=== PATIENT | male | born 1990 | race African-American/Black ===

== ENCOUNTER 2018-10-04 08:14 | Emergency (ER) | payer OTHER ==
[2018-10-04 09:37] LABS: BASOPHIL % 0.5 % (0.0-0.4); Basophil (Absolute #) 0.02 (0-0.4); Eosinophil % 3.7 % (0.00-5.0); Eosinophil (Absolute #) 0.15 (0-0.5); Granulocyte Absolute (ANC) 1.52 (1.4-6.9); Granulocytes % 37.1 % (36.0-66.0); Hematocrit 38.1 % (42-50); Hemoglobin 12.4 gm/dl (12.5-18.0); Lymphocyte (Absolute #) 1.98 (1.0-4.6); Lymphocytes % 48.4 % (24.0-44.0); Mean Cell Volume 89.2 fl (78-100); Mean Corpuscular Hgb Concent. 32.5 g/dl (32-36); Mean Platelet Volume 10.6 fl (6-9.5); Monocyte (Absolute #) 0.42 (0.0-1.3); Monocytes % 10.3 % (0.0-12.0); Platelet Count 161 K/mm3 (150-450); Red Blood Count 4.27 M/mm3 (4.1-5.6); Red Cell Distribution Width 13.6 % (11.5-14.0); White Blood Count 4.1 K/mm3 (4.0-10.5)
[2018-10-04 09:46] LABS: BLOOD UREA NITROGEN 17 mg/dL (9-20); CHLORIDE 109 mmol/L (98-107); Calcium 9.3 mg/dL (8.4-10.2); Carbon Dioxide 27 mmol/L (22-30); Creatinine 1 1.09 mg/dL (0.66-1.25); Glucose 76 mg/dL (74-106); Potassium 3.7 mmol/L (3.5-5.1); SODIUM 141 mmol/L (137-145)
[2018-10-04 09:49] LABS: ACETAMINOPHEN < 10 ug/ml (10-30); SALICYLATE < 1.0 mg/dL (2-20)
[2018-10-04 09:50] LABS: ETHYL ALCOHOL < 10 mg/dL (0-10)
[2018-10-04 09:51] LABS: Appearance CLEAR (CLEAR); Bilirubin NEGATIVE (NEGATIVE); Blood NEGATIVE Ery/ul (0-5); Glucose NEGATIVE (NEGATIVE); Ketones NEGATIVE (NEGATIVE); Leukocyte Esterase NEGATIVE (NEGATIVE); Mucus SLIGHT /HPF (NEGATIVE); Nitrite NEGATIVE (NEGATIVE); Protein,Urine Dip NEGATIVE (Negative); Specific Gravity 1.024 (1.005-1.025); Urobilinogen NEGATIVE mg/dL (0-1)
[2018-10-04 09:52] LABS: Bacteria FEW /HPF (NEGATIVE); Epithelial Cells FEW /HPF (FEW)
[2018-10-04 09:56] LABS: Amphetamine,Urine POSITIVE (NEGATIVE); Barbiturate,Urine NEGATIVE (NEGATIVE); Benzodiazepine,Urine NEGATIVE (NEGATIVE); Cocaine,Urine NEGATIVE (NEGATIVE); Methadone,Urine NEGATIVE (NEGATIVE); Opiate,Urine NEGATIVE (NEGATIVE); PCP,Urine POSITIVE (NEGATIVE); THC,Urine POSITIVE (NEGATIVE)
[2018-10-04 13:41] VITALS: PULSE 58
--- NOTE | 2018-10-04 13:41 | ERPHSYRPT ---
- History of Present Illness Source: patient Exam Limitations: no limitations Patient Subjective Stated Complaint: STATES HAS HX OF DEPRESSION AND RECENTLY HAS FELT WORSE. STATES HE QUIT HIS JOB YESTERDAY BECAUSE OF THE DEPRESSION AND STATES HE WAS DEALING WITH A LOT OF RACISM AT WORK. STATES HE THINKS DAILY OF KILLING HIMSELF BUT HAS NO SPECIFIC PLAN. Triage Nursing Assessment: AMBULATED TO ROOM PER SELF. SKIN W/D, COLOR NORMAL, RESP EASY. SOMEWHAT FLAT AFFECT, MONOTONE VOICE. DENIES ANY PAIN AT THIS TIME. Physician History: Pt is a 28 y/o male that presented to the ED with suicidal ideation. Pt has a h /o of psychiatric problems and depression. He could not afford his meds, and did not take it for a while. He lost his job yesterday and was very depressed. Pt decided to leave the area, and saw the hospital, and decided to come in and get some help. Pt denies F/C/S. No SOB or cough. No chest pain or palpitations. Pt states, has some auditory and visual hallucinations. Had SI in the past, but never acted on it. Timing/Duration: yesterday Severity of Symptoms-Max: moderate Severity of Symptoms-Current: moderate Previous symptoms: same symptoms as today Allergies/Adverse Reactions: No Known Drug Allergies Allergy (Unverified 10/04/18 08:41) Home Medications: No Reportable Medications [No Reported Medications] 10/04/18 [History] Hx Tetanus, Diphtheria Vaccination/Date Given: No Hx Influenza Vaccination/Date Given: No Hx Pneumococcal Vaccination/Date Given: No - Past Medical History Pertinent Past Medical History: Yes Psycho-Social History: Depression - Past Surgical History Past Surgical History: No - Social History Smoking Status: Current every day smoker How long have you smoked: 15 Exposure to second hand smoke: No Drug Use: marijuana Patient Lives Alone: Yes - Review of Systems Constitutional: No Fever, No Chills Eyes: No Symptoms Ears, Nose, & Throat: No Symptoms Respiratory: No Cough, No Dyspnea Cardiac: No Chest Pain, No Edema, No Syncope Abdominal/Gastrointestinal: No Abdominal Pain, No Nausea, No Vomiting, No Diarrhea Musculoskeletal: No Back Pain, No Neck Pain Neurological: No Dizziness, No Focal Weakness, No Sensory Changes Psychological: Drug Abuse, Suicidal Ideations, Hallucinations, Mood Changes - Nursing Vital Signs Nursing Vital Signs: Initial Vital Signs Temperature 98.1 F 10/04/18 08:26 Pulse Rate 75 10/04/18 08:26 Respiratory Rate 16 10/04/18 08:26 Blood Pressure 120/69 10/04/18 08:26 O2 Sat by Pulse Oximetry 98 10/04/18 08:26 Pain Scale Pain Intensity 0 - Physical Exam General Appearance: no apparent distress Eyes, Ears, Nose, Throat Exam: normal ENT inspection, moist mucous membranes Neck Exam: normal inspection, non-tender, supple Respiratory Exam: normal breath sounds, lungs clear, No respiratory distress Cardiovascular Exam: regular rate/rhythm, No edema Gastrointestinal/Abdominal Exam: soft, No tenderness, No distention Extremities Exam: normal inspection, normal range of motion, No evidence of injury, No edema Neurological Exam: alert, 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, oriented x 3 Behavior/Eye Contact/Speech: cooperative, avoids eye contact, compulsive Thoughts/Hallucinations: auditory hallucinations, flight of ideas SpO2 Interpretation: normal SpO2: 97 O2 Delivery: Room Air - Course Nursing assessment & vital signs reviewed: Yes Ordered Tests: Active Orders 24 hr Category Date Time Status ACETAMINOPHEN Stat Lab 10/04/18 09:15 Completed BMP Stat Lab 10/04/18 09:15 Completed CBC W DIFF Stat Lab 10/04/18 09:15 Completed ETHYL ALCOHOL Stat Lab 10/04/18 09:15 Completed SALICYLATE Stat Lab 10/04/18 09:15 Completed UA W/RFX UR CULTURE Stat Lab 10/04/18 09:15 Completed Urine Triage Profile Stat Lab 10/04/18 09:15 Completed Lab/Rad Data: Laboratory Result Diagrams 10/04/18 09:15 10/04/18 09:15 Laboratory Results 10/04/18 10/04/18 10/04/18 Range/Units 09:15 09:15 09:15 WBC (4.0-10.5) K/mm3 RBC (4.1-5.6) M/mm3 Hgb (12.5-18.0) gm/dl Hct (42-50) % MCV (78-100) fl MCH (26-32) pg MCHC (32-36) g/dl RDW (11.5-14.0) % Plt Count (150-450) K/mm3 MPV (6-9.5) fl Gran % (36.0-66.0) % Eos # (Auto) (0-0.5) Absolute Lymphs (auto) (1.0-4.6) Absolute Monos (auto) (0.0-1.3) Lymphocytes % (24.0-44.0) % Monocytes % (0.0-12.0) % Eosinophils % (0.00-5.0) % Basophils % (0.0-0.4) % Absolute Granulocytes (1.4-6.9) Basophils # (0-0.4) Sodium 141 (137-145) mmol/L Potassium 3.7 (3.5-5.1) mmol/L Chloride 109 H (98-107) mmol/L Carbon Dioxide 27 (22-30) mmol/L Anion Gap 8.0 (5-15) MEQ/L BUN 17 (9-20) mg/dL Creatinine 1.09 (0.66-1.25) mg/dL Estimated GFR > 60.0 ML/MIN Glucose 76 (74-106) mg/dL Calcium 9.3 (8.4-10.2) mg/dL Urine Color YELLOW (YELLOW) Urine Appearance CLEAR (CLEAR) Urine pH 5.0 (5-6) Ur Specific [place] 1.024 (1.005-1.025) Urine Protein NEGATIVE (Negative) Urine Ketones NEGATIVE (NEGATIVE) Urine Blood NEGATIVE (0-5) Jose/ul Urine Nitrite NEGATIVE (NEGATIVE) Urine Bilirubin NEGATIVE (NEGATIVE) Urine Urobilinogen NEGATIVE (0-1) mg/dL Ur Leukocyte Esterase NEGATIVE (NEGATIVE) Urine WBC (Auto) NONE (0-5) /HPF Urine RBC (Auto) NONE (0-2) /HPF U Epithel Cells (Auto) FEW (FEW) /HPF Urine Bacteria (Auto) FEW (NEGATIVE) /HPF Other Casts (Auto) NEGATIVE (NEGATIVE) /LPF Urine Mucus (Auto) SLIGHT (NEGATIVE) /HPF Urine Culture Reflexed NO (NO) Urine Glucose NEGATIVE (NEGATIVE) mg/dL Salicylates < 1.0 L (2-20) mg/dL Urine Opiates Level NEGATIVE (NEGATIVE) Ur Methadone NEGATIVE (NEGATIVE) Acetaminophen < 10 L (10-30) ug/ml Urine Barbiturates NEGATIVE (NEGATIVE) Ur Phencyclidine (PCP) POSITIVE (NEGATIVE) Urine Amphetamine POSITIVE (NEGATIVE) U Benzodiazepine Level NEGATIVE (NEGATIVE) Urine Cocaine NEGATIVE (NEGATIVE) Urine Marijuana (THC) POSITIVE (NEGATIVE) Ethyl Alcohol < 10 (0-10) mg/dL 10/04/18 Range/Units 09:15 WBC 4.1 (4.0-10.5) K/mm3 RBC 4.27 (4.1-5.6) M/mm3 Hgb 12.4 L (12.5-18.0) gm/dl Hct 38.1 L (42-50) % MCV 89.2 (78-100) fl MCH 29.0 (26-32) pg MCHC 32.5 (32-36) g/dl RDW 13.6 (11.5-14.0) % Plt Count 161 (150-450) K/mm3 MPV 10.6 H (6-9.5) fl Gran % 37.1 (36.0-66.0) % Eos # (Auto) 0.15 (0-0.5) Absolute Lymphs (auto) 1.98 (1.0-4.6) Absolute Monos (auto) 0.42 (0.0-1.3) Lymphocytes % 48.4 H (24.0-44.0) % Monocytes % 10.3 (0.0-12.0) % Eosinophils % 3.7 (0.00-5.0) % Basophils % 0.5 (0.0-0.4) % Absolute Granulocytes 1.52 (1.4-6.9) Basophils # 0.02 (0-0.4) Sodium (137-145) mmol/L Potassium (3.5-5.1) mmol/L Chloride (98-107) mmol/L Carbon Dioxide (22-30) mmol/L Anion Gap (5-15) MEQ/L BUN (9-20) mg/dL Creatinine (0.66-1.25) mg/dL Estimated GFR ML/MIN Glucose (74-106) mg/dL Calcium (8.4-10.2) mg/dL Urine Color (YELLOW) Urine Appearance (CLEAR) Urine pH (5-6) Ur Specific [place] (1.005-1.025) Urine Protein (Negative) Urine Ketones (NEGATIVE) Urine Blood (0-5) Jose/ul Urine Nitrite (NEGATIVE) Urine Bilirubin (NEGATIVE) Urine Urobilinogen (0-1) mg/dL Ur Leukocyte Esterase (NEGATIVE) Urine WBC (Auto) (0-5) /HPF Urine RBC (Auto) (0-2) /HPF U Epithel Cells (Auto) (FEW) /HPF Urine Bacteria (Auto) (NEGATIVE) /HPF Other Casts (Auto) (NEGATIVE) /LPF Urine Mucus (Auto) (NEGATIVE) /HPF Urine Culture Reflexed (NO) Urine Glucose (NEGATIVE) mg/dL Salicylates (2-20) mg/dL Urine Opiates Level (NEGATIVE) Ur Methadone (NEGATIVE) Acetaminophen (10-30) ug/ml Urine Barbiturates (NEGATIVE) Ur Phencyclidine (PCP) (NEGATIVE) Urine Amphetamine (NEGATIVE) U Benzodiazepine Level (NEGATIVE) Urine Cocaine (NEGATIVE) Urine Marijuana (THC) (NEGATIVE) Ethyl Alcohol (0-10) mg/dL - Progress Progress: improved Progress Note: 10/04/18 13:41 Pt was seen and examined. Lab work was unremarkable, besides the UDS that was positive for PCP, THC and Amphetamines. Pt was cleared medically and Psych evaluated the pt. Waiting on a bed for transfer. 10/04/18 14:35 Pt was accepted by [facility]. He will be transferred there for admission. Will see patient in: other (Transfer to [facility] for Psych) - Departure Departure Disposition: Transfer Clinical Impression: Psychotic disorder Condition: Stable Critical Care Time: No Referrals: DOCTOR,NO FAMILY [Primary Care Provider] - Additional Instructions: Pt to be transferred to [facility] for psych.
[2018-10-04 14:33] VITALS: BP 118/64
[2018-10-04 14:37] VITALS: O2SAT 97
== END 2018-10-04 15:34 | disposition short-term general hospital (02) ==
LOC: ED 08:14
DX: F23 Brief psychotic disorder (principal); R45.851 Suicidal ideations; F32.9 Major depressive disorder, single episode, unspecified
CPT/HCPCS: 36415; 80048; 80307; 81001; 85025; 90791; 99284; G0480; G0481; Q3014